=== PATIENT | female | born 1985 | race Caucasian/White ===

== ENCOUNTER 2020-02-21 06:33 | Emergency (ER) | payer BC, SELFPAY ==
[2019-10-05 15:17] VITALS: BMI 51.3
[2020-02-21 06:34] VITALS: BP 150/75; PULSE 60; RESP 16; TEMP 36.7; O2SAT 98; BMI 43.2
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
[2020-02-21] MEDS: Acetaminophen 500 MG Tablet 1000 MG PO (06:48)
== END 2020-02-21 08:06 | disposition home or self-care (01) ==
PROVIDERS: Emergency Provider Emergency Medicine
DX: S20.211A Contusion of right front wall of thorax, initial encounter (principal); S46.212A Strain of muscle, fascia and tendon of other parts of biceps, left arm, initial encounter; E66.9 Obesity, unspecified; V40.5XXA Car driver injured in collision with pedestrian or animal in traffic accident, initial encounter; Y93.9 Activity, unspecified; Y92.9 Unspecified place or not applicable; F43.10 Post-traumatic stress disorder, unspecified; Z79.899 Other long term (current) drug therapy
CPT/HCPCS: 71101; 71120; 99284